=== PATIENT | female | born 1945 | race Two or more races ===

== ENCOUNTER 2016-12-14 16:17 | Inpatient (IN) | payer MEDICARE ==
[~2016-12-14] VITALS: Ht 152.4 cm; Wt 61.2 kg
[2016-12-14 16:25] VITALS: BP_SYST 126; BP_SYST 132; BP_DIAS 63; BP_DIAS 86
[2016-12-14] MEDS ORDERED: PROPRANOLOL HCL10 MG ORAL (16:31)
[2016-12-14 16:41] LABS: BASOPHILS % (AUTO) 0.6 % (0.0-2.0); EOSINOPHILS % (AUTO) 2.2 % (0.0-3.0); LYMPHOCYTES % (AUTO) 17.2 % (20.0-45.0); MEAN CORPUSCULAR HEMOGLOBIN 28.6 PG (27.0-31.0); MEAN CORPUSCULAR HGB CONC 32.2 G/DL (32.0-36.0); MEAN CORPUSCULAR VOLUME 89 FL (80-99); MEAN PLATELET VOLUME 6.6 FL (6.5-10.1); MONOCYTES % (AUTO) 6.3 % (1.0-10.0); NEUTROPHILS % (AUTO) 73.7 % (45.0-75.0); PLATELET COUNT 227 K/UL (150-450); RED BLOOD COUNT 4.79 M/UL (4.20-5.40); RED CELL DISTRIBUTION WIDTH 11.1 % (11.6-14.8); WHITE BLOOD COUNT 8.5 K/UL (4.8-10.8)
--- NOTE | 2016-12-14 16:48 | Diagnostic Imaging Report ---
Indication: Chest pain Technique: One view of the chest Comparison: none Findings: Inspiration is suboptimal. Lungs and pleural spaces are clear. Heart size is normal. Aorta is tortuous Impression: No acute process
[2016-12-14 17:27] LABS: ALANINE AMINOTRANSFERASE 19 U/L (12-78); ALBUMIN/GLOBULIN RATIO 0.9 (1.0-2.7); ANION GAP 13 (5-15); ASPARTATE AMINO TRANSFERASE 12 U/L (15-37); CALCIUM 9.4 MG/DL (8.5-10.1); CARBON DIOXIDE 20 MMOL/L (21-32); CHLORIDE 103 MMOL/L (98-107); CREATININE 1.7 MG/DL (0.55-1.30); GLOMERULAR FILTRATION RATE 29.7 mL/min (>60); POTASSIUM 3.3 MMOL/L (3.5-5.1); SODIUM 136 MMOL/L (136-145); TOTAL PROTEIN 7.4 G/DL (6.4-8.2)
--- NOTE | 2016-12-14 17:31 | Emergency Room Report ---
History of Present Illness General Chief Complaint: General Complaint Source: Patient, EMS Present Illness HPI 71YOF BIBEMS for SOB/chest pain, found to be in SVT to 180 Failed valsalva by EMS EMS gave adenosone 6mg and broke rate to 65 Patient feels much better Takes daily propranolol for "shaking" but didnt take today Denies previous SVT, arrhythmia Denies CAD, HTN, DM, HLD, asthma/COPD history Allergies: Coded Allergies: No Known Allergies (Unverified , 12/14/16) Patient History Past Medical History: HTN Past Surgical History: none Pertinent Family History: none Social History: Denies: smoking, alcohol use, drug use Now: No Immunizations: UTD Reviewed Nursing Documentation: PMH: Agreed, PSxH: Agreed Nursing Documentation-PMH Past Medical History: No History, Except For Hx Hypertension: Yes Review of Systems All Other Systems: negative except mentioned in HPI Physical Exam Vital Signs Date Time Temp Pulse Resp B/P (MAP) Pulse Ox O2 Delivery O2 Flow Rate FiO2 12/14/16 16:09 60 18 132/86 99 Room Air Sp02 EP Interpretation: reviewed, normal General Appearance: normal inspection, well appearing, no apparent distress, alert, GCS 15, non-toxic Head: normocephalic, atraumatic Eyes: bilateral eye PERRL, bilateral eye EOMI ENT: normal ENT inspection, hearing grossly normal, normal voice Neck: normal inspection, full range of motion, supple, no bony tend Respiratory: normal inspection, lungs clear, normal breath sounds, no respiratory distress, no retraction, no wheezing Cardiovascular #1: regular rate, rhythm, no edema Gastrointestinal: normal inspection, normal bowel sounds, non tender, soft, no guarding, no hernia Genitourinary: no CVA tenderness Musculoskeletal: normal inspection, back normal, normal range of motion, Aura' s Sign negative Neurologic: normal inspection, alert, oriented x3, responsive, litigation examiner III-XII nml as tested, motor strength/tone normal, speech normal Psychiatric: normal inspection, judgement/insight normal, mood/affect normal Skin: normal inspection, normal color, no rash Medical Decision Making Medicare Attestation I Rojelio Guaman MD hereby attest that the medical record entry for date of service, 12/14/16 accurately reflects signatures/notations that I made in my capacity as MD when I treated/diagnosed the above listed Medicare beneficiary. I attest that this information is true, accurate and complete to the best of my knowledge. I understand that any falsification, omission, or concealment of material fact may subject me to administrative, civil, or criminal liability. This patient warrants hospital admission for extreme of age and has a condition that cannot be treated as outpatient. Diagnostic Impression: Primary Impression: Chest pain Qualified Codes: R07.9 - Chest pain, unspecified Additional Impressions: SVT (supraventricular tachycardia) Hypokalemia SYLVIA (acute kidney injury) ER Course VSS. Afebrile Asymptomatic now Troponin <0.056 Remains asymptomatic in ED Given ASA Labs: SYLVIA, mild hypoK IVF Ns and K repleted Endorsed to Dr Emmanuel for Dr Wheeler at 549pm EKG Diagnostic Results Rate: normal Rhythm: NSR ST Segments: no acute changes ASA given to the pt in ED: No Rhythm Strip Diag. Results EP Interpretation: yes Rate: 84 Rhythm: NSR, no PVC's, no ectopy Chest X-Ray Diagnostic Results Chest X-Ray Diagnostic Results : Chest X-Ray Ordered: Yes # of Views/Limited/Complete: 1 View Indication: Chest Pain EP Interpretation: Yes Interpretation: no consolidation, no effusion, no pneumothorax, no acute cardiopulmonary disease Impression: No acute disease Electronically Signed by: Dr Rojelio Guaman MD Last Vital Signs Date Time Temp Pulse Resp B/P (MAP) Pulse Ox O2 Delivery O2 Flow Rate FiO2 12/14/16 16:25 93 18 126/63 99 Room Air Status: improved Disposition: ADMITTED INPATIENT Condition: Serious Referrals: LILA WHEELER (PCP) ROJELIO GUAMAN M.D. Dec 14, 2016 17:31
[2016-12-14] MEDS ORDERED: Nitroglycerin Subl 0.4mg tab SL PRN (18:15)
[2016-12-14] MEDS ORDERED: Miralax 17gm pkt ORAL PRN (18:15)
[2016-12-14] MEDS ORDERED: dilTIAZem HCl 25mg/5ml Inj IV PRN (18:15)
[2016-12-14] MEDS ORDERED: Albuterol/Ipratropium 3ml neb HHN PRN (18:15)
[2016-12-14] MEDS ORDERED: Metoprolol 5mg/5ml Inj IVP PRN (18:15)
[2016-12-14 18:24] VITALS: BP 130/70
[2016-12-14 19:46] VITALS: BP 125/59
[2016-12-14 23:09] LABS: APPEARANCE,URINE CLEAR; KETONES,URINE NEGATIVE (NEGATIVE); LEUKOCYTE ESTERASE ,URINE NEGATIVE (NEGATIVE); NITRITE,URINE NEGATIVE (NEGATIVE); PH,URINE 5 (4.5-8.0); PROTEIN,URINE NEGATIVE (NEGATIVE); UROBILINOGEN,URINE NORMAL MG/DL (0.0-1.0)
[2016-12-14 23:22] LABS: BACTERIA,URINE FEW /HPF; RBC,URINE 0-2 /HPF (0 - 2); SQUAMOUS EPITHELIAL CELL,UR FEW /LPF (NONE/OCC); WBC,URINE 0-2 /HPF (0 - 2)
[2016-12-15] VITALS: BP 115/72
[2016-12-15 04:00] VITALS: BP 126/70
[2016-12-15 07:55] LABS: BASOPHILS % (AUTO) 0.9 % (0.0-2.0); EOSINOPHILS % (AUTO) 2.5 % (0.0-3.0); LYMPHOCYTES % (AUTO) 27.2 % (20.0-45.0); MEAN CORPUSCULAR HEMOGLOBIN 29.7 PG (27.0-31.0); MEAN CORPUSCULAR HGB CONC 33.7 G/DL (32.0-36.0); MEAN CORPUSCULAR VOLUME 88 FL (80-99); MEAN PLATELET VOLUME 7.4 FL (6.5-10.1); MONOCYTES % (AUTO) 8.1 % (1.0-10.0); NEUTROPHILS % (AUTO) 61.3 % (45.0-75.0); PLATELET COUNT 247 K/UL (150-450); RED BLOOD COUNT 4.62 M/UL (4.20-5.40); RED CELL DISTRIBUTION WIDTH 11.1 % (11.6-14.8); WHITE BLOOD COUNT 7.4 K/UL (4.8-10.8)
[2016-12-15 08:00] VITALS: BP 113/70
[2016-12-15 08:06] LABS: PROTHROMBIN TIME 10.1 SEC (9.30-11.50)
[2016-12-15 08:23] LABS: CHOLESTEROL 249 MG/DL (< 200); CHOLESTEROL/HDL RATIO 6.7 (3.3-4.4); THYROID STIMULATING HORMONE 2.283 uiU/mL (0.360-3.740)
[2016-12-15 08:24] LABS: CRP QUANT 0.1 mg/dL (0.00-0.90)
[2016-12-15] MEDS: Propranolol 10mg tab ORAL SCH ×3 (08:39→17:55)
[2016-12-15] MEDS: Heparin 5000 units/ml inj SUBQ SCH ×3 (08:42→21:00)
[2016-12-15] MEDS ORDERED: Digoxin 0.5mg/2ml Inj IVP SCH (09:00)
--- NOTE | 2016-12-15 11:51 | Consultation ---
History of Present Illness General Date patient seen: Dec 14, 2016 Chief Complaint: General Complaint Reason for Consultation: inpatient management Present Illness HPI 71 year old male with hx of HTN, and chronic neck pain, for SOB/chest pain, found to be in SVT to 180 She received adenosone 6mg by paramedics and broke rate to 65 and brought to [facility] for further care. She is admitted to telemetry for further work up. Allergies: Coded Allergies: No Known Allergies (Unverified , 12/14/16) Medication History Scheduled Propranolol Hcl* (Inderal*), Unknown Dose ORAL THREE TIMES A DAY, (Reported) Patient History Healthcare decision maker N Resuscitation status Full Code Advanced Directive on File Past Medical/Surgical History Past Medical/Surgical History: (1) HTN (hypertension) Review of Systems Constitutional: Reports: no symptoms All Other Systems: negative except mentioned in HPI Physical Exam Lines, tubes and drains: peripheral HEENT: normocephalic, atraumatic Neck: non-tender, normal alignment Respiratory/Chest: chest wall non-tender, lungs clear Breasts: no masses Cardiovascular/Chest: normal peripheral pulses, normal rate Genitourinary/Rectal: normal genital exam, normal rectal exam Extremities: normal range of motion, non-tender Neurologic: painter assistant II-XII grossly normal Last 24 Hour Vital Signs Date Time Temp Pulse Resp B/P (MAP) Pulse Ox O2 Delivery O2 Flow Rate FiO2 12/15/16 08:41 80 12/15/16 08:39 80 113/70 12/15/16 08:00 81 12/15/16 08:00 97.7 80 21 113/70 98 Room Air 12/15/16 04:00 97.7 84 20 126/70 96 Room Air 12/15/16 04:00 83 12/15/16 00:00 80 12/15/16 00:00 97.7 81 18 115/72 97 Room Air 12/14/16 19:46 97.8 89 19 125/59 98 Room Air 12/14/16 19:21 85 18 130/70 99 Room Air 12/14/16 18:24 85 18 130/70 99 Room Air 12/14/16 16:25 93 18 126/63 99 Room Air 12/14/16 16:09 60 18 132/86 99 Room Air Laboratory Tests Test 12/14/16 16:25 12/14/16 22:29 12/15/16 07:05 White Blood Count 8.5 K/UL (4.8-10.8) 7.4 K/UL (4.8-10.8) Red Blood Count 4.79 M/UL (4.20-5.40) 4.62 M/UL (4.20-5.40) Hemoglobin 13.7 G/DL (12.0-16.0) 13.7 G/DL (12.0-16.0) Hematocrit 42.5 % (37.0-47.0) 40.7 % (37.0-47.0) Mean Corpuscular Volume 89 FL (80-99) 88 FL (80-99) Mean Corpuscular Hemoglobin 28.6 PG (27.0-31.0) 29.7 PG (27.0-31.0) Mean Corpuscular Hemoglobin Concent 32.2 G/DL (32.0-36.0) 33.7 G/DL (32.0-36.0) Red Cell Distribution Width 11.1 % (11.6-14.8) L 11.1 % (11.6-14.8) L Platelet Count 227 K/UL (150-450) 247 K/UL (150-450) Mean Platelet Volume 6.6 FL (6.5-10.1) 7.4 FL (6.5-10.1) Neutrophils (%) (Auto) 73.7 % (45.0-75.0) 61.3 % (45.0-75.0) Lymphocytes (%) (Auto) 17.2 % (20.0-45.0) L 27.2 % (20.0-45.0) Monocytes (%) (Auto) 6.3 % (1.0-10.0) 8.1 % (1.0-10.0) Eosinophils (%) (Auto) 2.2 % (0.0-3.0) 2.5 % (0.0-3.0) Basophils (%) (Auto) 0.6 % (0.0-2.0) 0.9 % (0.0-2.0) Sodium Level 136 MMOL/L (136-145) Potassium Level 3.3 MMOL/L (3.5-5.1) L Chloride Level 103 MMOL/L (98-107) Carbon Dioxide Level 20 MMOL/L (21-32) L Anion Gap 13 (5-15) Blood Urea Nitrogen 43 mg/dL (7-18) H Creatinine 1.7 MG/DL (0.55-1.30) H Estimat Glomerular Filtration Rate 29.7 mL/min (>60) Glucose Level 145 MG/DL (74-106) H Calcium Level 9.4 MG/DL (8.5-10.1) Total Bilirubin 0.3 MG/DL (0.2-1.0) Aspartate Amino Transf (AST/SGOT) 12 U/L (15-37) L Alanine Aminotransferase (ALT/SGPT) 19 U/L (12-78) Alkaline Phosphatase 56 U/L (46-116) Total Creatine Kinase 55 U/L (26-308) Creatine Kinase MB 2.0 NG/ML (0.0-3.6) Creatine Kinase MB Relative Index 3.6 Troponin I 0.017 ng/mL (0.000-0.056) 0.000 ng/mL (0.000-0.056) Pro-B-Type Natriuretic Peptide 83 (0-125) Total Protein 7.4 G/DL (6.4-8.2) Albumin 3.4 G/DL (3.4-5.0) Globulin 4.0 g/dL Albumin/Globulin Ratio 0.9 (1.0-2.7) L Urine Color Pale yellow Urine Appearance Clear Urine pH 5 (4.5-8.0) Urine Specific [place] 1.010 (1.005-1.035) Urine Protein Negative (NEGATIVE) Urine Glucose (UA) Negative (NEGATIVE) Urine Ketones Negative (NEGATIVE) Urine Occult Blood Negative (NEGATIVE) Urine Nitrite Negative (NEGATIVE) Urine Bilirubin Negative (NEGATIVE) Urine Urobilinogen Normal MG/DL (0.0-1.0) Urine Leukocyte Esterase Negative (NEGATIVE) Urine RBC 0-2 /HPF (0 - 2) Urine WBC 0-2 /HPF (0 - 2) Urine Squamous Epithelial Cells Few /LPF (NONE/OCC) Urine Bacteria Few /HPF (NONE) Urine Eosinophils None seen Urine Random Sodium 58 MEQ/L (20-110) Urine Potassium Timed 31 mmol/L (12-62) Prothrombin Time 10.1 SEC (9.30-11.50) Prothromb Time International Ratio 1.0 (0.9-1.1) Activated Partial Thromboplast Time 25 SEC (23-33) Uric Acid 7.9 MG/DL (2.6-7.2) H C-Reactive Protein, Quantitative 0.1 mg/dL (0.00-0.90) Triglycerides Level 159 MG/DL (0-200) Cholesterol Level 249 MG/DL (< 200) H LDL Cholesterol 197 mg/dL (<100) H HDL Cholesterol 37 MG/DL (40-60) L Cholesterol/HDL Ratio 6.7 (3.3-4.4) H Thyroid Stimulating Hormone (TSH) 2.283 uiU/mL (0.360-3.740) Height (Feet): 5 Height (Inches): 0.00 Weight (Pounds): 135 Medications Current Medications Medications (Trade) Dose Ordered Sig/Krissy Route PRN Reason Start Time Stop Time Status Last Admin Dose Admin Acetaminophen (Tylenol) 650 mg Q4H PRN ORAL FEVER 12/14/16 18:15 01/13/17 18:14 Albuterol/ Ipratropium (DuoNeb 0.5-3(2.5)mg/3ml) 3 ml Q4H PRN HHN Shortness of Breath 12/14/16 18:15 12/19/16 18:14 Digoxin (Lanoxin) 0.25 mg DAILY IVP 12/15/16 09:00 01/14/17 08:59 12/15/16 08:41 Diltiazem HCl (Cardizem) 10 mg Q1H PRN IV heart rate more than 120 12/14/16 18:15 01/13/17 18:14 Heparin Sodium (Porcine) (Heparin 5000 units/ml) 5,000 units EVERY 12 HOURS SUBQ 12/15/16 09:00 01/14/17 08:59 Metoprolol Tartrate (Lopressor) 5 mg Q1H PRN IVP heart rate more than 140 12/14/16 18:15 01/13/17 18:14 Nitroglycerin (Ntg) 0.4 mg Every 5 Minutes PRN SL Prn Chest Pain 12/14/16 18:15 01/13/17 18:14 Ondansetron HCl (Zofran) 4 mg Q6H PRN IVP Nausea & Vomiting 12/14/16 18:15 01/13/17 18:14 Pantoprazole (Protonix) 40 mg DAILY ORAL 12/15/16 09:00 01/14/17 08:59 12/15/16 08:39 Polyethylene Glycol (Miralax) 17 gm DAILYPRN PRN ORAL Constipation 12/14/16 18:15 01/13/17 18:14 Propranolol HCl (Inderal) 10 mg THREE TIMES A DAY ORAL 12/15/16 09:00 01/14/17 08:59 12/15/16 08:39 Temazepam (Restoril) 15 mg HSPRN PRN ORAL Insomnia 12/14/16 18:15 12/21/16 18:14 Assessment/Plan Problem List: (1) SVT (supraventricular tachycardia) ICD Codes: I47.1 - Supraventricular tachycardia SNOMED: 9626710 (2) HTN (hypertension) ICD Codes: I10 - Essential (primary) hypertension SNOMED: 90009058 (3) Chest pain ICD Codes: R07.9 - Chest pain, unspecified SNOMED: 59207727 Qualifiers: Qualified Codes: R07.9 - Chest pain, unspecified Assessment/Plan cardizem prn telemetry monitoring echo serial ekg, troponin monitor bp ?anticoagulation ETHEL VAZ Dec 15, 2016 11:51
--- NOTE | 2016-12-15 11:56 | Pulmonology Progress Note ---
Assessment/Plan Problems: (1) SVT (supraventricular tachycardia) (2) HTN (hypertension) (3) Chest pain Assessment/Plan rate controlled check echo symptomatic treatment troponin negative check electrolytes. Subjective ROS Limited/Unobtainable: No Interval Events: no new complains Allergies: Coded Allergies: No Known Allergies (Unverified , 12/14/16) Objective Last 24 Hour Vital Signs Date Time Temp Pulse Resp B/P (MAP) Pulse Ox O2 Delivery O2 Flow Rate FiO2 12/15/16 08:41 80 12/15/16 08:39 80 113/70 12/15/16 08:00 81 12/15/16 08:00 97.7 80 21 113/70 98 Room Air 12/15/16 04:00 97.7 84 20 126/70 96 Room Air 12/15/16 04:00 83 12/15/16 00:00 80 12/15/16 00:00 97.7 81 18 115/72 97 Room Air 12/14/16 19:46 97.8 89 19 125/59 98 Room Air 12/14/16 19:21 85 18 130/70 99 Room Air 12/14/16 18:24 85 18 130/70 99 Room Air 12/14/16 16:25 93 18 126/63 99 Room Air 12/14/16 16:09 60 18 132/86 99 Room Air General Appearance: WD/WN HEENT: normocephalic, atraumatic, anicteric Respiratory/Chest: chest wall non-tender, normal breath sounds Breasts: no masses Cardiovascular: normal peripheral pulses Abdomen: normal bowel sounds, soft, non tender Extremities: no cyanosis 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 Lymphatic: no neck adenopathy Laboratory Tests 12/14/16 16:25: White Blood Count 8.5, Red Blood Count 4.79, Hemoglobin 13.7, Hematocrit 42.5, Mean Corpuscular Volume 89, Mean Corpuscular Hemoglobin 28.6, Mean Corpuscular Hemoglobin Concent 32.2, Red Cell Distribution Width 11.1L, Platelet Count 227, Mean Platelet Volume 6.6, Neutrophils (%) (Auto) 73.7, Lymphocytes (%) (Auto) 17.2L, Monocytes (%) (Auto) 6.3, Eosinophils (%) (Auto) 2.2, Basophils (%) (Auto ) 0.6, Sodium Level 136, Potassium Level 3.3L, Chloride Level 103, Carbon Dioxide Level 20L, Anion Gap 13, Blood Urea Nitrogen 43H, Creatinine 1.7H, Estimat Glomerular Filtration Rate 29.7, Glucose Level 145H, Calcium Level 9.4, Total Bilirubin 0.3, Aspartate Amino Transf (AST/SGOT) 12L, Alanine Aminotransferase (ALT/SGPT) 19, Alkaline Phosphatase 56, Total Creatine Kinase 55, Creatine Kinase MB 2.0, Creatine Kinase MB Relative Index 3.6, Troponin I 0.017, Pro-B-Type Natriuretic Peptide 83, Total Protein 7.4, Albumin 3.4, Globulin 4.0, Albumin/Globulin Ratio 0.9L 12/14/16 22:29: Urine Color Pale yellow, Urine Appearance Clear, Urine pH 5, Urine Specific [place] 1.010, Urine Protein Negative, Urine Glucose (UA) Negative, Urine Ketones Negative, Urine Occult Blood Negative, Urine Nitrite Negative, Urine Bilirubin Negative, Urine Urobilinogen Normal, Urine Leukocyte Esterase Negative , Urine RBC 0-2, Urine WBC 0-2, Urine Squamous Epithelial Cells Few, Urine Bacteria Few, Urine Eosinophils None seen, Urine Random Sodium 58, Urine Potassium Timed 31 12/15/16 07:05: White Blood Count 7.4, Red Blood Count 4.62, Hemoglobin 13.7, Hematocrit 40.7, Mean Corpuscular Volume 88, Mean Corpuscular Hemoglobin 29.7, Mean Corpuscular Hemoglobin Concent 33.7, Red Cell Distribution Width 11.1L, Platelet Count 247, Mean Platelet Volume 7.4, Neutrophils (%) (Auto) 61.3, Lymphocytes (%) (Auto) 27.2, Monocytes (%) (Auto) 8.1, Eosinophils (%) (Auto) 2.5, Basophils (%) (Auto ) 0.9, Troponin I 0.000, Prothrombin Time 10.1, Prothromb Time International Ratio 1.0, Activated Partial Thromboplast Time 25, Uric Acid 7.9H, C-Reactive Protein, Quantitative 0.1, Triglycerides Level 159, Cholesterol Level 249H, LDL Cholesterol 197H, HDL Cholesterol 37L, Cholesterol/HDL Ratio 6.7H, Thyroid Stimulating Hormone (TSH) 2.283 Current Medications Medications (Trade) Dose Ordered Sig/Krissy Route PRN Reason Start Time Stop Time Status Last Admin Dose Admin Acetaminophen (Tylenol) 650 mg Q4H PRN ORAL FEVER 12/14/16 18:15 01/13/17 18:14 Albuterol/ Ipratropium (DuoNeb 0.5-3(2.5)mg/3ml) 3 ml Q4H PRN HHN Shortness of Breath 12/14/16 18:15 12/19/16 18:14 Digoxin (Lanoxin) 0.25 mg DAILY IVP 12/15/16 09:00 01/14/17 08:59 12/15/16 08:41 Diltiazem HCl (Cardizem) 10 mg Q1H PRN IV heart rate more than 120 12/14/16 18:15 01/13/17 18:14 Heparin Sodium (Porcine) (Heparin 5000 units/ml) 5,000 units EVERY 12 HOURS SUBQ 12/15/16 09:00 01/14/17 08:59 Metoprolol Tartrate (Lopressor) 5 mg Q1H PRN IVP heart rate more than 140 12/14/16 18:15 01/13/17 18:14 Nitroglycerin (Ntg) 0.4 mg Every 5 Minutes PRN SL Prn Chest Pain 12/14/16 18:15 01/13/17 18:14 Ondansetron HCl (Zofran) 4 mg Q6H PRN IVP Nausea & Vomiting 12/14/16 18:15 01/13/17 18:14 Pantoprazole (Protonix) 40 mg DAILY ORAL 12/15/16 09:00 01/14/17 08:59 12/15/16 08:39 Polyethylene Glycol (Miralax) 17 gm DAILYPRN PRN ORAL Constipation 12/14/16 18:15 01/13/17 18:14 Propranolol HCl (Inderal) 10 mg THREE TIMES A DAY ORAL 12/15/16 09:00 01/14/17 08:59 12/15/16 08:39 Temazepam (Restoril) 15 mg HSPRN PRN ORAL Insomnia 12/14/16 18:15 12/21/16 18:14 ETHEL VAZ Dec 15, 2016 11:56
[2016-12-15 12:00] VITALS: BP 124/74
[2016-12-15 13:10] LABS: ALANINE AMINOTRANSFERASE 16 U/L (12-78); ALBUMIN/GLOBULIN RATIO 0.9 (1.0-2.7); ANION GAP 13 (5-15); ASPARTATE AMINO TRANSFERASE 13 U/L (15-37); CARBON DIOXIDE 18 MMOL/L (21-32); CHLORIDE 104 MMOL/L (98-107); CREATININE 1.3 MG/DL (0.55-1.30); GLOMERULAR FILTRATION RATE 40.5 mL/min (>60); POTASSIUM 3.5 MMOL/L (3.5-5.1); SODIUM 135 MMOL/L (136-145); TOTAL PROTEIN 6.9 G/DL (6.4-8.2)
[2016-12-15 16:00] VITALS: BP 118/73
--- NOTE | 2016-12-15 18:14 | Cardiac Electrophysiology PN ---
Subjective Subjective [id number] Dictated and DW Dr Emmanuel EPS and ablation as out patient Objective Last 24 Hour Vital Signs Date Time Temp Pulse Resp B/P (MAP) Pulse Ox O2 Delivery O2 Flow Rate FiO2 12/15/16 17:55 65 118/73 12/15/16 16:00 65 12/15/16 16:00 97.7 74 20 118/73 94 Room Air 12/15/16 12:43 67 126/74 12/15/16 12:00 97.7 67 20 124/74 98 Room Air 12/15/16 12:00 65 12/15/16 08:41 80 12/15/16 08:39 80 113/70 12/15/16 08:00 81 12/15/16 08:00 97.7 80 21 113/70 98 Room Air 12/15/16 04:00 97.7 84 20 126/70 96 Room Air 12/15/16 04:00 83 12/15/16 00:00 80 12/15/16 00:00 97.7 81 18 115/72 97 Room Air 12/14/16 19:46 97.8 89 19 125/59 98 Room Air 12/14/16 19:21 85 18 130/70 99 Room Air 12/14/16 18:24 85 18 130/70 99 Room Air Laboratory Tests Test 12/14/16 22:29 12/15/16 07:05 Urine Color Pale yellow Urine Appearance Clear Urine pH 5 (4.5-8.0) Urine Specific [place] 1.010 (1.005-1.035) Urine Protein Negative (NEGATIVE) Urine Glucose (UA) Negative (NEGATIVE) Urine Ketones Negative (NEGATIVE) Urine Occult Blood Negative (NEGATIVE) Urine Nitrite Negative (NEGATIVE) Urine Bilirubin Negative (NEGATIVE) Urine Urobilinogen Normal MG/DL (0.0-1.0) Urine Leukocyte Esterase Negative (NEGATIVE) Urine RBC 0-2 /HPF (0 - 2) Urine WBC 0-2 /HPF (0 - 2) Urine Squamous Epithelial Cells Few /LPF (NONE/OCC) Urine Bacteria Few /HPF (NONE) Urine Eosinophils None seen Urine Random Sodium 58 MEQ/L (20-110) Urine Potassium Timed 31 mmol/L (12-62) White Blood Count 7.4 K/UL (4.8-10.8) Red Blood Count 4.62 M/UL (4.20-5.40) Hemoglobin 13.7 G/DL (12.0-16.0) Hematocrit 40.7 % (37.0-47.0) Mean Corpuscular Volume 88 FL (80-99) Mean Corpuscular Hemoglobin 29.7 PG (27.0-31.0) Mean Corpuscular Hemoglobin Concent 33.7 G/DL (32.0-36.0) Red Cell Distribution Width 11.1 % (11.6-14.8) L Platelet Count 247 K/UL (150-450) Mean Platelet Volume 7.4 FL (6.5-10.1) Neutrophils (%) (Auto) 61.3 % (45.0-75.0) Lymphocytes (%) (Auto) 27.2 % (20.0-45.0) Monocytes (%) (Auto) 8.1 % (1.0-10.0) Eosinophils (%) (Auto) 2.5 % (0.0-3.0) Basophils (%) (Auto) 0.9 % (0.0-2.0) Prothrombin Time 10.1 SEC (9.30-11.50) Prothromb Time International Ratio 1.0 (0.9-1.1) Activated Partial Thromboplast Time 25 SEC (23-33) Sodium Level 135 MMOL/L (136-145) L Potassium Level 3.5 MMOL/L (3.5-5.1) Chloride Level 104 MMOL/L (98-107) Carbon Dioxide Level 18 MMOL/L (21-32) L Anion Gap 13 (5-15) Blood Urea Nitrogen 39 mg/dL (7-18) H Creatinine 1.3 MG/DL (0.55-1.30) Estimat Glomerular Filtration Rate 40.5 mL/min (>60) Glucose Level 98 MG/DL (74-106) Uric Acid 7.9 MG/DL (2.6-7.2) H Calcium Level 9.0 MG/DL (8.5-10.1) Total Bilirubin 0.3 MG/DL (0.2-1.0) Aspartate Amino Transf (AST/SGOT) 13 U/L (15-37) L Alanine Aminotransferase (ALT/SGPT) 16 U/L (12-78) Alkaline Phosphatase 48 U/L (46-116) Troponin I 0.000 ng/mL (0.000-0.056) C-Reactive Protein, Quantitative 0.1 mg/dL (0.00-0.90) Total Protein 6.9 G/DL (6.4-8.2) Albumin 3.3 G/DL (3.4-5.0) L Globulin 3.6 g/dL Albumin/Globulin Ratio 0.9 (1.0-2.7) L Triglycerides Level 159 MG/DL (0-200) Cholesterol Level 249 MG/DL (< 200) H LDL Cholesterol 197 mg/dL (<100) H HDL Cholesterol 37 MG/DL (40-60) L Cholesterol/HDL Ratio 6.7 (3.3-4.4) H Thyroid Stimulating Hormone (TSH) 2.283 uiU/mL (0.360-3.740) CARLY GERMAIN Dec 15, 2016 18:14
--- NOTE | 2016-12-15 18:59 | History & Physical ---
History and Physical History & Physicial Abhi Emmanuel MD Dec 15, 2016 18:59
[2016-12-15 20:00] VITALS: BP 117/69
--- NOTE | 2016-12-15 21:45 | History and Physical Report ---
DATE OF ADMISSION: 12/14/2016 CHIEF COMPLAINT: Palpitations, chest pain, and shortness of breath. HISTORY OF PRESENT ILLNESS: This is a 71-year-old female with past medical history significant for hypertension, who has presented to the hospital complaining about chest pain and shortness of breath, who was found to be in SVT with a heart rate of 160. The patient received Valsalva maneuver by EMS. It was unsuccessful and subsequently, the patient received adenosine 6 mg and broke the rate to 65. The patient felt better and subsequently was brought into the emergency room. Shortly after initial evaluation in the emergency room, the patient was admitted to the hospital with SVT, chest pain, and hypokalemia with acute kidney injury. PAST MEDICAL HISTORY AND PAST SURGICAL HISTORY: As above. History of hypertension. She is a chronic smoker. MEDICATIONS: Medications at home is significant for propranolol. ALLERGY: No known drug allergies. SOCIAL HISTORY: The patient smokes two packs of cigarettes a day. Denies any substance abuse. Rarely drinks. She lives by herself. REVIEW OF SYSTEMS: Mostly as above. Denies any dysuria, frequency, hematuria, or hematochezia. Denies any hemoptysis or hematochezia. Denies any suicidal or homicidal ideations. She complained about the bright red blood per rectum when she has a bowel movement. Denies any loss of consciousness. Denies any fall. PHYSICAL EXAMINATION: VITAL SIGNS: On admission, temperature afebrile, pulse of 60, respirations 18, and blood pressure 132/86. GENERAL: The patient is awake, responsive, and in no acute distress. HEAD AND NECK: Pupils are equal and reactive to light. Extraocular movements are intact. Neck was supple. No JVD. LUNGS: Good air entry. No wheezing or rales. HEART: S1 and S2. Regular rhythm. No gallops. ABDOMEN: Soft, nondistended, and nontender. Mildly obese. EXTREMITIES: No cyanosis, clubbing, or edema. NEUROLOGIC: Cranial nerves II through XII are grossly intact. Motor is 5/5 in all extremities. RECTAL: Refused and deferred. GENITOURINARY: Refused and deferred. PSYCHIATRIC: Mood and affect is intact. LABORATORY DATA: On admission from the ER is significant with WBC of 8.5, hemoglobin 13, hematocrit 42, and platelets is 227,000. Sodium 136, potassium 2.3, chloride 103, bicarbonate 20, BUN 43, creatinine 1.7, and glucose is 145. Calcium is 9.4. AST of 12, ALT of 19, and total protein is 7.4. Cholesterol is 249. LDL of 197. TSH is 2.283. PT of 10. INR 1.0. PTT of 25. Urinalysis is essentially unremarkable. The patient had a chest x-ray, which noted no acute process. EKG on the field showed supraventricular tachycardia with a rate of 175. EKG from the ER noted to be in normal sinus rhythm with a ventricular rate of 91. No ST elevation or T-wave inversion. The patient has a Q-wave noted in lead 2, 3, and aVF. Otherwise, no ST elevation was identified. ASSESSMENT: 1. Supraventricular tachycardia. 2. Acute kidney injury most likely secondary to dehydration with acute tubular necrosis. 3. History of bright red blood per rectum. No esophagogastroduodenoscopy and colonoscopy in the past. 4. Hypertension. 5. Dyslipidemia. 6. Chronic smoker. PLAN: 1. Admit the patient to telemetry. 2. We will follow up with Dr. Rodney for Cardiology consultation, Dr. Bojorquez from Pulmonary Critical Care, and Dr. Watt from GI. 3. We will monitor laboratory including CBC and follow up with the 2D echo. 4. DVT prophylaxis with SCD. 5. Code status is Full Code. Abhi Emmanuel M.D. DR: SIVA JOB#: [id number] CC:
[2016-12-16] VITALS: BP 120/77
--- NOTE | 2016-12-16 05:00 | Consultation ---
DATE OF CONSULTATION: 12/15/2016 CARDIAC ELECTROPHYSIOLOGY CONSULTATION CONSULTING PHYSICIAN: Tariq Rodney M.D. REFERRING PHYSICIAN: Abhi Emmanuel M.D. REASON FOR CONSULTATION: Supraventricular tachycardia. HISTORY OF PRESENT ILLNESS: The patient is a 71-year-old lady with history of hypertension, chronic pain, as well as history of palpitation came to the emergency room for shortness of breath and chest pain and was found to be in supraventricular tachycardia at a rate of 180 beats per minute. The patient received 6 mg of adenosine by paramedics. The patient probably cardioverted to sinus rhythm. The patient came to the emergency room for further evaluation and management. Since the patient's conversion to sinus rhythm, has not had recurrence of SVT. REVIEW OF SYSTEMS: Review of systems was thoroughly performed and was negative other what was mentioned in the history of present illness PAST MEDICAL HISTORY: 1. Hypertension. 2. History of palpitation. MEDICATIONS: At home include Inderal. SOCIAL HISTORY: She lives at home. Does not smoke or drink alcohol. FAMILY HISTORY: Noncontributory. PHYSICAL EXAMINATION: VITAL SIGNS: Blood pressure 118/73, pulse 65, respirations 18, and she is afebrile. HEAD AND NECK: Showed no JVD or carotid bruits. LUNGS: Clear. CARDIOVASCULAR: Shows regular S1 and S2 with no gallop or murmur. ABDOMEN: Soft and nontender. EXTREMITIES: No pitting edema. LABORATORY AND DIAGNOSTIC DATA: Her EKG showed sinus rhythm at a rate of 91 with no evidence of pre-excitation. Unfortunately, the rhythm strip of SVT by paramedics is not available. Her EKG on 12/15/2015 at 03:34 p.m. showed supraventricular tachycardia at 175 beats per minute with no discrete P-waves suggestive of AV frandy reentrant tachycardia. Labs showed white count 7.4, hemoglobin 13.7, hematocrit of 40, and platelet count of 247,000. Sodium 135, potassium 3.5, BUN of 39, creatinine 1.3, and glucose of 98. LDH is 197 and HDL is 37. TSH 2.83. ASSESSMENT AND PLAN: 1. History of recurrent palpitation with documented supraventricular tachycardia that terminated with adenosine. The 12-lead EKG of the supraventricular tachycardia as well as response to adenosine suggestive of AV frandy reentrant tachycardia. Continue the patient on digoxin 0.25 mg daily and start the patient on Cardizem CD 180 mg daily. The patient can be scheduled for electrophysiology study and ablation of her supraventricular tachycardia as an outpatient at [facility]. 2. Hypertension. Give the patient Cardizem CD 180 daily that would help with the patient's supraventricular tachycardia as well. 3. Obesity. 4. Headache and neck pain, the patient is on Tylenol. Thank very much, Dr. Emmanuel, for allowing me to participate in the care of this patient. Please do not hesitate to contact me for any questions regarding my evaluation. Tariq Rodney M.D. DR: Gi JOB#: [id number] CC:
[2016-12-16 08:00] VITALS: BP 120/60
--- NOTE | 2016-12-16 08:54 | Pulmonology Progress Note ---
Assessment/Plan Assessment/Plan ASSESSMENT SVT HTN hypokalemia SYLVIA vs CRI PLAN OF CARE tele SVT terminated with adenosine in SR praneeth clinically stable cardio EP seen and evaluated started on Digoxin and Cardizem BP stable with Cardizem K replaced serial troponin negative ECHO with pEF 60% CXR negative pulse ox stable on RA O2 HHN prn lipid panel stable DVT GI prophayxlis s/p IVF, avoid nephrotoxic check BMP today dc plan per PMD outpt ER study for ablation at [facility] - per cardio case discussed and evaluated by supervising physician Subjective Allergies: Coded Allergies: No Known Allergies (Unverified , 12/14/16) Subjective denies chest pain, SOB, palpitation in SR on tele on RA sat stable Objective Last 24 Hour Vital Signs Date Time Temp Pulse Resp B/P (MAP) Pulse Ox O2 Delivery O2 Flow Rate FiO2 12/16/16 08:00 97.7 75 20 120/60 98 Room Air 12/16/16 03:50 67 12/16/16 00:00 97.9 75 21 120/77 96 Room Air 12/15/16 23:54 66 12/15/16 20:00 97.5 71 21 117/69 99 Room Air 12/15/16 19:40 70 18 Room Air 21 12/15/16 19:22 72 12/15/16 17:55 65 118/73 12/15/16 16:00 65 12/15/16 16:00 97.7 74 20 118/73 94 Room Air 12/15/16 12:43 67 126/74 12/15/16 12:00 97.7 67 20 124/74 98 Room Air 12/15/16 12:00 65 General Appearance: WD/WN, no acute distress HEENT: normocephalic, atraumatic, anicteric, mucous membranes moist, PERRL Respiratory/Chest: chest wall non-tender, lungs clear, normal breath sounds, no respiratory distress, no accessory muscle use Cardiovascular: normal peripheral pulses, normal rate - SR on tele , regular rhythm, no JVD Abdomen: normal bowel sounds, soft, non tender, non distended Extremities: no edema, pedal pulses normal Neurologic/Psychiatric: alert, oriented x 3, responsive Musculoskeletal: normal muscle bulk Current Medications Medications (Trade) Dose Ordered Sig/Krissy Route PRN Reason Start Time Stop Time Status Last Admin Dose Admin Acetaminophen (Tylenol) 650 mg Q4H PRN ORAL FEVER 12/14/16 18:15 01/13/17 18:14 Albuterol/ Ipratropium (DuoNeb 0.5-3(2.5)mg/3ml) 3 ml Q4H PRN HHN Shortness of Breath 12/14/16 18:15 12/19/16 18:14 Diltiazem HCl (Cardizem CD) 180 mg DAILY ORAL 12/16/16 09:00 01/15/17 08:59 Diltiazem HCl (Cardizem) 10 mg Q1H PRN IV heart rate more than 120 12/14/16 18:15 01/13/17 18:14 Heparin Sodium (Porcine) (Heparin 5000 units/ml) 5,000 units EVERY 12 HOURS SUBQ 12/15/16 09:00 01/14/17 08:59 Metoprolol Tartrate (Lopressor) 5 mg Q1H PRN IVP heart rate more than 140 12/14/16 18:15 01/13/17 18:14 Nitroglycerin (Ntg) 0.4 mg Every 5 Minutes PRN SL Prn Chest Pain 12/14/16 18:15 01/13/17 18:14 Ondansetron HCl (Zofran) 4 mg Q6H PRN IVP Nausea & Vomiting 12/14/16 18:15 01/13/17 18:14 Pantoprazole (Protonix) 40 mg DAILY ORAL 12/15/16 09:00 01/14/17 08:59 12/15/16 08:39 Polyethylene Glycol (Miralax) 17 gm DAILYPRN PRN ORAL Constipation 12/14/16 18:15 01/13/17 18:14 Temazepam (Restoril) 15 mg HSPRN PRN ORAL Insomnia 12/14/16 18:15 12/21/16 18:14 Jake ([facility])Krystal NP Dec 16, 2016 08:54
[2016-12-16] MEDS: dilTIAZem HCl CD 180mg cap ORAL SCH ×2 (09:00→09:21)
[2016-12-16] MEDS: Heparin 5000 units/ml inj SUBQ SCH ×2 (09:00→21:00)
[2016-12-16 12:00] VITALS: BP 128/73
--- NOTE | 2016-12-16 14:18 | Internal Med Progress Note ---
Subjective Date of Service: Dec 16, 2016 Physician Name Solorzano,Claus Attending Physician Abhi Emmanuel MD Current Medications Medications (Trade) Dose Ordered Sig/Krissy Route PRN Reason Start Time Stop Time Status Last Admin Dose Admin Acetaminophen (Tylenol) 650 mg Q4H PRN ORAL FEVER 12/14/16 18:15 01/13/17 18:14 Albuterol/ Ipratropium (DuoNeb 0.5-3(2.5)mg/3ml) 3 ml Q4H PRN HHN Shortness of Breath 12/14/16 18:15 12/19/16 18:14 Diltiazem HCl (Cardizem CD) 180 mg DAILY ORAL 12/16/16 09:00 01/15/17 08:59 Diltiazem HCl (Cardizem) 10 mg Q1H PRN IV heart rate more than 120 12/14/16 18:15 01/13/17 18:14 Heparin Sodium (Porcine) (Heparin 5000 units/ml) 5,000 units EVERY 12 HOURS SUBQ 12/15/16 09:00 01/14/17 08:59 Hydrocortisone (Anusol HC) 1 supp TWICE A DAY RECTAL 12/16/16 18:00 01/15/17 17:59 Metoprolol Tartrate (Lopressor) 5 mg Q1H PRN IVP heart rate more than 140 12/14/16 18:15 01/13/17 18:14 Nitroglycerin (Ntg) 0.4 mg Every 5 Minutes PRN SL Prn Chest Pain 12/14/16 18:15 01/13/17 18:14 Ondansetron HCl (Zofran) 4 mg Q6H PRN IVP Nausea & Vomiting 12/14/16 18:15 01/13/17 18:14 Pantoprazole (Protonix) 40 mg DAILY ORAL 12/15/16 09:00 01/14/17 08:59 12/16/16 09:21 Polyethylene Glycol (Miralax) 17 gm DAILYPRN PRN ORAL Constipation 12/14/16 18:15 01/13/17 18:14 Temazepam (Restoril) 15 mg HSPRN PRN ORAL Insomnia 12/14/16 18:15 12/21/16 18:14 Allergies: Coded Allergies: No Known Allergies (Unverified , 12/14/16) ROS Limited/Unobtainable: No Constitutional: Reports: no symptoms HEENT: Reports: no symptoms Cardiovascular: Reports: chest pain, palpitations Respiratory: Reports: no symptoms Gastrointestinal/Abdominal: Reports: no symptoms Genitourinary: Reports: no symptoms Neurologic/Psychiatric: Reports: no symptoms Subjective 71 YO F admitted with shortness of breath and chest pain. Now Supraventricular tachycardia. Cover for Internal Med-Dr Emmanuel. Objective Last Vital Signs Date Time Temp Pulse Resp B/P (MAP) Pulse Ox O2 Delivery O2 Flow Rate FiO2 12/16/16 12:00 97.1 77 19 128/73 97 Room Air 12/15/16 19:40 21 General Appearance: WD/WN, no apparent distress, alert EENT: PERRL/EOMI, normal ENT inspection Neck: non-tender, normal alignment, supple Cardiovascular: normal peripheral pulses, normal rate, regular rhythm, no gallop/murmur, no JVD Respiratory/Chest: chest wall non-tender, lungs clear, normal breath sounds, no respiratory distress, no accessory muscle use Abdomen: normal bowel sounds, non tender, soft, no organomegaly, no mass Extremities: normal range of motion 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 Resolving on IV fluids. (2) Hypercholesteremia (3) SOB (shortness of breath) (4) SVT (supraventricular tachycardia) Assessment & Plan: Currently sinus. See cardiology note. Continue cardizem (5) Chest pain (6) HTN (hypertension) Status: not improved CLAUS SOLORZANO Dec 16, 2016 14:18
--- NOTE | 2016-12-16 14:40 | Cardiac Electrophysiology PN ---
Assessment/Plan Assessment/Plan 1. History of recurrent palpitation with documented supraventricular tachycardia that terminated with adenosine. The 12-lead EKG of the supraventricular tachycardia as well as response to adenosine suggestive of AV frandy reentrant tachycardia. Continue digoxin 0.25 mg daily and Cardizem CD 180 mg daily. The patient can be scheduled for electrophysiology study and ablation of her supraventricular tachycardia as an outpatient at [facility]. 2. Hypertension. On Cardizem CD 180 daily 3. Obesity. 4. Headache and neck pain, the patient is on Tylenol. Subjective Subjective No SVT overnight. No chest pain or SOB. Objective Last 24 Hour Vital Signs Date Time Temp Pulse Resp B/P (MAP) Pulse Ox O2 Delivery O2 Flow Rate FiO2 12/16/16 12:00 97.1 77 19 128/73 97 Room Air 12/16/16 08:00 97.7 75 20 120/60 98 Room Air 12/16/16 03:50 67 12/16/16 00:00 97.9 75 21 120/77 96 Room Air 12/15/16 23:54 66 12/15/16 20:00 97.5 71 21 117/69 99 Room Air 12/15/16 19:40 70 18 Room Air 21 12/15/16 19:22 72 12/15/16 17:55 65 118/73 12/15/16 16:00 65 12/15/16 16:00 97.7 74 20 118/73 94 Room Air Objective HEAD AND NECK: Showed no JVD or carotid bruits. LUNGS: Clear. CARDIOVASCULAR: Shows regular S1 and S2 with no gallop or murmur. ABDOMEN: Soft and nontender. EXTREMITIES: No pitting edema. CARLY GERMAIN Dec 16, 2016 14:40
[2016-12-16 16:00] VITALS: BP 131/75
[2016-12-16] MEDS: Anusol HC Supp RECTAL SCH (18:00)
[2016-12-16 20:00] VITALS: BP 125/62
[2016-12-17] VITALS: BP 125/75
[2016-12-17 04:00] VITALS: BP 99/63
[2016-12-17 08:47] LABS: BASOPHILS % (AUTO) 0.7 % (0.0-2.0); EOSINOPHILS % (AUTO) 2.3 % (0.0-3.0); MEAN CORPUSCULAR HEMOGLOBIN 30.7 PG (27.0-31.0); MEAN CORPUSCULAR HGB CONC 34.9 G/DL (32.0-36.0); MEAN CORPUSCULAR VOLUME 88 FL (80-99); MEAN PLATELET VOLUME 7.6 FL (6.5-10.1); MONOCYTES % (AUTO) 8.4 % (1.0-10.0); NEUTROPHILS % (AUTO) 60.7 % (45.0-75.0); PLATELET COUNT 214 K/UL (150-450); RED BLOOD COUNT 4.23 M/UL (4.20-5.40); WHITE BLOOD COUNT 7.1 K/UL (4.8-10.8)
[2016-12-17] MEDS: Anusol HC Supp RECTAL SCH (09:00)
[2016-12-17] MEDS: Heparin 5000 units/ml inj SUBQ SCH (09:00)
[2016-12-17 09:10] LABS: ANION GAP 9 (5-15); CALCIUM 9.3 MG/DL (8.5-10.1); CARBON DIOXIDE 26 MMOL/L (21-32); CHLORIDE 108 MMOL/L (98-107); CREATININE 1.1 MG/DL (0.55-1.30); GLOMERULAR FILTRATION RATE 49.1 mL/min (>60); POTASSIUM 3.2 MMOL/L (3.5-5.1); SODIUM 143 MMOL/L (136-145)
[2016-12-17 09:16] VITALS: BP 136/75
[2016-12-17] MEDS: dilTIAZem HCl CD 180mg cap ORAL SCH (09:16)
--- NOTE | 2016-12-17 10:01 | Pulmonology Progress Note ---
Assessment/Plan Assessment/Plan ASSESSMENT SVT HTN hypokalemia SYLVIA liekly due to dehydration PLAN OF CARE tele SVT terminated with adenosine in SR praneeth clinically stable cardio EP seen and evaluated started on Digoxin and Cardizem BP stable with Cardizem K replaced serial troponin negative ECHO with pEF 60% CXR negative pulse ox stable on RA O2 HHN prn lipid panel stable DVT GI prophayxlis s/p IVF, avoid nephrotoxic creat down to 1.1 likely dehydration, avoid NSAIDs replace K dc today ( discussed with dr Boone) outpt ER study for ablation at [facility] - per cardio , all info was provided by dr De La Garza to the patient patient verbalized understanding of the plan case discussed and evaluated by supervising physician Subjective Allergies: Coded Allergies: No Known Allergies (Unverified , 12/14/16) Subjective denies chest pain, SOB, palpitation continue to be in SR on tele on RA sat stable Objective Last 24 Hour Vital Signs Date Time Temp Pulse Resp B/P (MAP) Pulse Ox O2 Delivery O2 Flow Rate FiO2 12/17/16 09:16 83 136/75 12/17/16 04:00 97.7 80 18 99/63 97 Room Air 12/17/16 04:00 85 12/17/16 00:00 79 12/17/16 00:00 97.2 78 20 125/75 96 Room Air 12/16/16 20:01 81 20 Room Air 21 12/16/16 20:00 105 12/16/16 20:00 97.5 86 20 125/62 96 Room Air 12/16/16 16:00 97.8 80 20 131/75 98 Room Air 12/16/16 16:00 73 12/16/16 12:00 97.1 77 19 128/73 97 Room Air 12/16/16 12:00 80 Objective General Appearance: WD/WN, no acute distress HEENT: normocephalic, atraumatic, anicteric, mucous membranes moist, PERRL Respiratory/Chest: chest wall non-tender, lungs clear, normal breath sounds, no respiratory distress, no accessory muscle use Cardiovascular: normal peripheral pulses, normal rate - SR on tele , regular rhythm, no JVD Abdomen: normal bowel sounds, soft, non tender, non distended Extremities: no edema, pedal pulses normal Neurologic/Psychiatric: alert, oriented x 3, responsive Musculoskeletal: normal muscle bulk Laboratory Tests 12/17/16 07:00: White Blood Count 7.1, Red Blood Count 4.23, Hemoglobin 13.0, Hematocrit 37.2, Mean Corpuscular Volume 88, Mean Corpuscular Hemoglobin 30.7, Mean Corpuscular Hemoglobin Concent 34.9, Red Cell Distribution Width 11.0L, Platelet Count 214, Mean Platelet Volume 7.6, Neutrophils (%) (Auto) 60.7, Lymphocytes (%) (Auto) 28.0, Monocytes (%) (Auto) 8.4, Eosinophils (%) (Auto) 2.3, Basophils (%) (Auto ) 0.7, Sodium Level 143, Potassium Level 3.2L, Chloride Level 108H, Carbon Dioxide Level 26, Anion Gap 9, Blood Urea Nitrogen 36H, Creatinine 1.1, Estimat Glomerular Filtration Rate 49.1, Glucose Level 96, Calcium Level 9.3, Troponin I 0.002 Current Medications Medications (Trade) Dose Ordered Sig/Krissy Route PRN Reason Start Time Stop Time Status Last Admin Dose Admin Acetaminophen (Tylenol) 650 mg Q4H PRN ORAL FEVER 12/14/16 18:15 01/13/17 18:14 12/16/16 23:05 Albuterol/ Ipratropium (DuoNeb 0.5-3(2.5)mg/3ml) 3 ml Q4H PRN HHN Shortness of Breath 12/14/16 18:15 12/19/16 18:14 Diltiazem HCl (Cardizem CD) 180 mg DAILY ORAL 12/16/16 09:00 01/15/17 08:59 12/17/16 09:16 Diltiazem HCl (Cardizem) 10 mg Q1H PRN IV heart rate more than 120 12/14/16 18:15 01/13/17 18:14 Heparin Sodium (Porcine) (Heparin 5000 units/ml) 5,000 units EVERY 12 HOURS SUBQ 12/15/16 09:00 01/14/17 08:59 Hydrocortisone (Anusol HC) 1 supp TWICE A DAY RECTAL 12/16/16 18:00 01/15/17 17:59 Metoprolol Tartrate (Lopressor) 5 mg Q1H PRN IVP heart rate more than 140 12/14/16 18:15 01/13/17 18:14 Nitroglycerin (Ntg) 0.4 mg Every 5 Minutes PRN SL Prn Chest Pain 12/14/16 18:15 01/13/17 18:14 Ondansetron HCl (Zofran) 4 mg Q6H PRN IVP Nausea & Vomiting 12/14/16 18:15 01/13/17 18:14 Pantoprazole (Protonix) 40 mg DAILY ORAL 12/15/16 09:00 01/14/17 08:59 12/16/16 09:21 Polyethylene Glycol (Miralax) 17 gm DAILYPRN PRN ORAL Constipation 12/14/16 18:15 01/13/17 18:14 Temazepam (Restoril) 15 mg HSPRN PRN ORAL Insomnia 12/14/16 18:15 12/21/16 18:14 Jake ([facility])Krystal NP Dec 17, 2016 10:01
[2016-12-17] MEDS ORDERED: CARDIZEM CD180 MG ORAL (10:09)
[2016-12-17] MEDS ORDERED: KLOR-CON M2020 MEQ ORAL (10:09)
[2016-12-17] MEDS ORDERED: DIGOXIN250 MCG ORAL (10:09)
--- NOTE | 2016-12-17 13:27 | Internal Med Progress Note ---
Subjective Date of Service: Dec 17, 2016 Physician Name Boone,Claus Attending Physician Abhi Emmanuel MD Current Medications Medications (Trade) Dose Ordered Sig/Krissy Route PRN Reason Start Time Stop Time Status Last Admin Dose Admin Acetaminophen (Tylenol) 650 mg Q4H PRN ORAL FEVER 12/14/16 18:15 01/13/17 18:14 12/16/16 23:05 Albuterol/ Ipratropium (DuoNeb 0.5-3(2.5)mg/3ml) 3 ml Q4H PRN HHN Shortness of Breath 12/14/16 18:15 12/19/16 18:14 Digoxin (Lanoxin) 0.25 mg DAILY ORAL 12/17/16 11:00 01/16/17 10:59 12/17/16 11:01 Diltiazem HCl (Cardizem CD) 180 mg DAILY ORAL 12/16/16 09:00 01/15/17 08:59 12/17/16 09:16 Diltiazem HCl (Cardizem) 10 mg Q1H PRN IV heart rate more than 120 12/14/16 18:15 01/13/17 18:14 Heparin Sodium (Porcine) (Heparin 5000 units/ml) 5,000 units EVERY 12 HOURS SUBQ 12/15/16 09:00 01/14/17 08:59 Hydrocortisone (Anusol HC) 1 supp TWICE A DAY RECTAL 12/16/16 18:00 01/15/17 17:59 Metoprolol Tartrate (Lopressor) 5 mg Q1H PRN IVP heart rate more than 140 12/14/16 18:15 01/13/17 18:14 Nitroglycerin (Ntg) 0.4 mg Every 5 Minutes PRN SL Prn Chest Pain 12/14/16 18:15 01/13/17 18:14 Ondansetron HCl (Zofran) 4 mg Q6H PRN IVP Nausea & Vomiting 12/14/16 18:15 01/13/17 18:14 Pantoprazole (Protonix) 40 mg DAILY ORAL 12/15/16 09:00 01/14/17 08:59 12/16/16 09:21 Polyethylene Glycol (Miralax) 17 gm DAILYPRN PRN ORAL Constipation 12/14/16 18:15 01/13/17 18:14 Temazepam (Restoril) 15 mg HSPRN PRN ORAL Insomnia 12/14/16 18:15 12/21/16 18:14 Allergies: Coded Allergies: No Known Allergies (Unverified , 12/14/16) ROS Limited/Unobtainable: No Constitutional: Reports: no symptoms HEENT: Reports: no symptoms Cardiovascular: Reports: chest pain Respiratory: Reports: shortness of breath Gastrointestinal/Abdominal: Reports: no symptoms Genitourinary: Reports: no symptoms Neurologic/Psychiatric: Reports: no symptoms Subjective 71 YO F admitted with shortness of breath and chest pain. Now Supraventricular tachycardia. Cover for Internal Med-Dr Emmanuel. Patient anxious to leave home. Objective Last Vital Signs Date Time Temp Pulse Resp B/P (MAP) Pulse Ox O2 Delivery O2 Flow Rate FiO2 12/17/16 11:01 91 12/17/16 09:16 136/75 12/17/16 06:54 18 Room Air 12/17/16 04:00 97.7 97 12/16/16 20:01 21 Laboratory Tests Test 12/17/16 07:00 White Blood Count 7.1 K/UL (4.8-10.8) Red Blood Count 4.23 M/UL (4.20-5.40) Hemoglobin 13.0 G/DL (12.0-16.0) Hematocrit 37.2 % (37.0-47.0) Mean Corpuscular Volume 88 FL (80-99) Mean Corpuscular Hemoglobin 30.7 PG (27.0-31.0) Mean Corpuscular Hemoglobin Concent 34.9 G/DL (32.0-36.0) Red Cell Distribution Width 11.0 % (11.6-14.8) L Platelet Count 214 K/UL (150-450) Mean Platelet Volume 7.6 FL (6.5-10.1) Neutrophils (%) (Auto) 60.7 % (45.0-75.0) Lymphocytes (%) (Auto) 28.0 % (20.0-45.0) Monocytes (%) (Auto) 8.4 % (1.0-10.0) Eosinophils (%) (Auto) 2.3 % (0.0-3.0) Basophils (%) (Auto) 0.7 % (0.0-2.0) Sodium Level 143 MMOL/L (136-145) Potassium Level 3.2 MMOL/L (3.5-5.1) L Chloride Level 108 MMOL/L (98-107) H Carbon Dioxide Level 26 MMOL/L (21-32) Anion Gap 9 (5-15) Blood Urea Nitrogen 36 mg/dL (7-18) H Creatinine 1.1 MG/DL (0.55-1.30) Estimat Glomerular Filtration Rate 49.1 mL/min (>60) Glucose Level 96 MG/DL (74-106) Calcium Level 9.3 MG/DL (8.5-10.1) Troponin I 0.002 ng/mL (0.000-0.056) Intake and Output 12/17/16 12/18/16 19:00 07:00 Intake Total 250 ml Balance 250 ml Intake Oral 250 ml # Voids 1 Objective General Appearance: WD/WN, no apparent distress, alert EENT: PERRL/EOMI, normal ENT inspection Neck: non-tender, normal alignment, supple Cardiovascular: normal peripheral pulses, normal rate, regular rhythm, no gallop/murmur, no JVD Respiratory/Chest: chest wall non-tender, lungs clear, normal breath sounds, no respiratory distress, no accessory muscle use Abdomen: normal bowel sounds, non tender, soft, no organomegaly, no mass Extremities: normal range of motion 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 Resolving on IV fluids. (2) Hypercholesteremia (3) SOB (shortness of breath) (4) SVT (supraventricular tachycardia) Assessment & Plan: Currently sinus. See cardiology note. Continue cardizem and digoxin (5) Chest pain (6) HTN (hypertension) Assessment & Plan: Continue cardizem Status: stable Assessment/Plan D/C home today. F/U cardiology-Roenl and PCP-CLAUS Solomon Dec 17, 2016 13:27
--- NOTE | 2016-12-17 22:45 | Consultation ---
GASTROENTEROLOGY CONSULTATION CONSULTING PHYSICIAN: Sanjay Rose M.D. CHIEF COMPLAINT: Rectal bleeding. HISTORY OF PRESENT ILLNESS: The patient is a 71-year-old female with past medical history of hypertension, came to the hospital with complaints of chest pain and shortness of breath, who has been followed by grain mixer. The patient had one episode of rectal bleeding and GI consult requested for evaluation. Apparently, the patient has on and off rectal bleeding. Denies any abdominal pain. No nausea. No vomiting. No dysphagia. No odynophagia. No significant weight loss. No prior history of endoscopy or colonoscopy. No severe constipation. PAST MEDICAL HISTORY: Hypertension. ALLERGIES: No known drug allergies. MEDICATIONS: Please see medication reconciliation list. SOCIAL HISTORY: The patient is a smoker about two packs of cigarettes a day. Denied any alcohol or street drug abuse. FAMILY HISTORY: Noncontributory. REVIEW OF SYSTEMS: A 10-point review of systems was performed and pertinent positives in the history of present illness. PHYSICAL EXAMINATION: VITAL SIGNS: Temperature 97.7 degrees, pulse 95, respirations 20, and blood pressure 120/68. HEENT: Normocephalic and atraumatic. Sclerae anicteric. NECK: Supple. No evidence of lymphadenopathy. CARDIOVASCULAR: Regular rate and rhythm. Plus S1 and S2. No obvious murmur. LUNGS: Clear to auscultation bilaterally. ABDOMEN: Positive bowel sounds. Soft and nontender. No rebound. No guarding. No peritoneal sign. EXTREMITIES: No cyanosis, clubbing, or edema. NEUROLOGIC: Nonfocal. LABORATORY DATA: White count 7.4, hemoglobin 13, hematocrit 40, and platelet count is 247,000. ASSESSMENT AND PLAN: The patient is a 71-year-old female with rectal bleeding on and off, most probably hemorrhoidal. No alarming signs or symptoms. No weight loss. No anemia. Given no prior history of endoscopy and colonoscopy, the patient needs a screening colonoscopy as an outpatient. The patient is admitted for chest pain followed by grain mixer. We recommend after the patient is cleared by Cardiology on discharge, to follow Dr. Watt as an outpatient for endoscopy and colonoscopy. I want to thank, Dr. Abhi Emmanuel, for this kind referral. Sanjay Tony Rose DR: SUSANA JOB#: [id number] CC: Abhi Emmanuel M.D.
--- NOTE | 2016-12-18 09:37 | Diagnostic Imaging Report ---
Indication: Abnormal renal function tests Technique: Grayscale and duplex images of the kidneys, retroperitoneum, and bladder were obtained. Comparison:None Findings: Right kidney measures 11 cm in length. Left kidney measures 11.3 cm in length. Both kidneys demonstrate normal echogenicity. There is slight fullness of the right renal pelvis but no esperanza hydronephrosis. There is a 12 mm right renal cyst. No focal abnormality. Normal inferior vena cava. Bladder is normal. Incidental finding of 17 mm left lobe liver cyst Impression: Essentially unremarkable exam Incidental finding of right renal and left lobe hepatic cysts.
--- NOTE | 2016-12-18 09:58 | Cardiology Report ---
APPROVED REPORT EXAM: Two-dimensional and M-mode echocardiogram with Doppler and color Doppler. INDICATION Left Ventricular Function M-Mode DIMENSIONS IVSd1.1 (0.7-1.1cm)Left Atrium (MM)3.6 (1.6-4.0cm) LVDd3.2 (3.5-5.6cm)Aortic Root3.4 (2.0-3.7cm) PWd1.0 (0.7-1.1cm)Aortic Cusp Exc.2.0 (1.5-2.0cm) LVDs1.7 (2.5-4.0cm) PWs1.4 cm Normal left ventricular chamber size, systolic function and wall motion. Left ventricular ejection fraction estimated to be 60 %. No evidence of left ventricular hypertrophy. Anterior Echo-free space, may be due to pericardial fat or effusion. All other cardiac chamber sizes are within normal limits. Normal appearing aortic valve. Normal appearing mitral valve leaflets with normal excursion. Mild mitral annulus and aortic root calcification. Normal pulmonic valve structure. Normal tricuspid valve structure. IVC at normal size with physiological collapse. Echogenic material noted in LV apex, likely muscle. A color flow and spectral Doppler study was performed and revealed: No aortic insufficiency. Trace mitral regurgitation. Mitral diastolic velocities suggest reduced left ventricular relaxation c/w diastolic dysfunction (Grade I). Trace tricuspid regurgitation. Tricuspid systolic velocities suggests peak right ventricular systolic pressure of 9 mmHg. No pulmonic regurgitation present.
--- NOTE | 2016-12-18 13:51 | Discharge Summary ---
Discharge Summary Hospital Course Date of Admission Dec 14, 2016 at 17:03 Date of Discharge Dec 17, 2016 at 12:23 Admitting Diagnosis Admit-SOB/SVT HPI Mena Bolanos is a 71 year old female who was admitted on Dec 14, 2016 at 17: 03 for Shortness Of Breath,Supraventricular Tachycardia Hospital Course dc summary #[id number] Discharge Discharge Disposition Patient was discharged to Discharge Diagnoses: Jake (Charlienely)Krystal NP Dec 18, 2016 13:51
--- NOTE | 2016-12-18 22:45 | Discharge Summary 2 SIG ---
DATE OF ADMISSION: 12/14/2016 DATE OF DISCHARGE: 12/17/2016 REASON FOR ADMISSION: 71-year-old female was brought in by paramedics for shortness of breath and chest pain. She was found to be in supraventricular tachycardia with heart rate of 180. She failed Valsalva maneuver by paramedics. Paramedics given adenosine 6 milligram, which broke heart rate to 65. The patient felt much better. The patient reported taking propranolol for shaking but did not take anything on that day. She denied previous history of arrhythmia or tachycardia. She denied coronary artery disease, chest pain, hypertension. diabetes mellitus, hyperlipidemia, asthma, COPD. The patient was asymptomatic when she came in ED. Troponin was negative. Aspirin was given. Noted mild hypokalemia and acute kidney injury. Potassium - 3.3, BUN -43, and creatinine- 1.7. Chest x-ray revealed no acute cardiopulmonary disease. Pulse oximetry was stable on room air. The patient was started on IV fluids with normal saline .Potassium was replaced , and the patient admitted for further management. HOSPITAL COURSE: The patient was admitted. Cardiology consult was requested along with the pulmonology consult. The patient was on telemetry floor. Supraventricular tachycardia initially was terminated with adenosine. She remained in sinus rhythm on telemetry and clinically stable. [facility] tray setter seen and evaluated the patient, started the patient on digoxin and Cardizem. Blood pressure was stable with Cardizem. Potassium was replaced. Serial troponin were negative. Echocardiogram revealed preserved ejection fraction of 60%. Chest x-ray was negative. Pulse oximetry was stable on room air. Lipid panel was stable. DVT and GI prophylaxis provided. The patient is status post IV fluids. Recommended to avoid nephrotoxics, especially nonsteroid inflammatory drugs. Acute kidney injury was likely due to dehydration, resolved. Potassium still was low and was replaced. [facility] recommended outpatient EP study for ablation at [facility]. All information was provided to the patient. The patient verbalized understanding of the plan. Meantime the patient can be The patient reported occasional episodes of rectal bleeding. GI specialist seen and evaluated the patient and stated that rectal bleeding most probably due to the hemorrhoids. He stated that since no alarming signs or symptoms, no weight loss, no anemia, there was a low suspicion for significance of bleeding, however since the patient did not have a prior endoscopy and colonoscopy, GI specialist recommended to have a screening colonoscopy as outpatient. Patient needs to be cleared by machine technician prior to follow up with the procedure. The patient will follow up with GI specialist along with the machine technician as outpatient. FINAL DIAGNOSES: 1. Supraventricular tachycardia, resolved. 2. Hypertension. 3. Hypokalemia. 4. Acute kidney injury likely due to dehydration. 5. Rectal bleeding. likely hemorrhoidal. DISCHARGE MEDICATIONS: See medication reconciliation list. DISCHARGE INSTRUCTIONS: The patient was discharged home. Followup with Cardiology for ablation as well as GI specialist for workup- colonoscopy and endoscopy as recommended. Abhi Emmanuel M.D. Krystal SingerMemorial Sloan Kettering Cancer CenterJessica NFrancis DR: Nidia JOB#: [id number] CC: JARON
--- NOTE | 2016-12-26 08:42 | Cardiology Report ---
APPROVED REPORT EKG Measurement Heart [id number] Normal sinus rhythm Low voltage QRS Borderline ECG
== END 2016-12-17 12:23 | disposition home or self-care (01) | DRG 683 ==
LOC: EDBD 16:17 → EMR 17:02 → 2E 17:03 → EDBEDREQ 18:18 → 2E 12-15 15:49
DX: N17.9 Acute kidney failure, unspecified (principal); I47.1 Supraventricular tachycardia; I10 Essential (primary) hypertension; E86.0 Dehydration; E87.6 Hypokalemia; K64.9 Unspecified hemorrhoids; E78.5 Hyperlipidemia, unspecified; E78.00 Pure hypercholesterolemia, unspecified; R51 Headache; G89.29 Other chronic pain; M54.2 Cervicalgia; F17.210 Nicotine dependence, cigarettes, uncomplicated
CPT/HCPCS: 36415; 71010; 76775; 80048; 80053; 80061; 81001; 82550; 82553; 83880; 84133; 84300; 84443; 84484; 84550; 85025; 85610; 85730; 86140; 89050; 93005; 93306; 94664; 99285; J8499